=== PATIENT | male | born 1965 | race Caucasian/White ===

== ENCOUNTER 2018-09-11 07:16 | Observation (INO) ==
[2018-09-11] MEDS ORDERED: CeFAZolin Syr 2,000MG/20 ML 2,000 MG/20 ML SYRINGE IVPB ONE (07:41)
[2018-09-11] MEDS ORDERED: *HR* FentaNYL (PF) 100 MCG/2 ML VIAL ONE (07:44)
[2018-09-11] MEDS ORDERED: *HR* Midazolam HCl 2 MG/2 ML VIAL ONE (07:44)
[2018-09-11] MEDS ORDERED: Ringers Solution, Lactated 500 ML IVC SCH (07:45)
[2018-09-11] MEDS ORDERED: Ondansetron 4 MG/2 ML VIAL ONE (07:49)
[2018-09-11] MEDS ORDERED: Lidocaine -MPF 2% 2 ML VIAL ONE (07:49)
[2018-09-11] MEDS ORDERED: Dexamethasone 4 MG/ML VIAL ONE (07:49)
[2018-09-11] MEDS ORDERED: Propofol 500 MG/50 ML INFUS..BTL ONE (07:50)
--- NOTE | 2018-09-11 07:54 | History & Physical Report ---
Date of Encounter: 09/11/18 Time of Encounter: 07:53 24 Hour HP Update - Instructions Instructions: If the History and Physical is less than 30 days old and was completed prior to A.M. admission and or procedure and has NOT been updated on calendar day of procedure please complete this update prior to performing procedure. - Update Patient reports changes in Medical Condition: No Changes in examination, assessment, or condition: No Changes in Medication: No Preop tests/diagnostics Reviewed: Yes Surgery Remains Indicated: Yes Consent for Planned Operative Procedure(s) Verified: Yes - Pre-Operative Checklist Preoperative Checklist Indicated: No Prophylactic Antibiotic Ordered: Yes Is VTE Prophylaxis Indicated?: Yes
[2018-09-11] MEDS ORDERED: Ethanol\\Acetic Acid\\Na Ace\\Ben 1,000 ML IRRIG.SOLN IR ONE (08:01)
--- NOTE | 2018-09-11 08:07 | Anesthesia Evaluation PreOp ---
Date of Encounter: 09/11/18 Time of Encounter: 08:05 - Past History Planned Operation: Right Robotic Toatal Knee Arthroplasty Cardiac History: HTN, Hyperlipidemia Pulmonary History: Former smoker (quit 2001), Snore, Other (Hx B. PE) DATA INTEGRATION ANALYST History: Syncope, Other (Tremors) Other Medical History: Diabetes Type II, Other (Hypomagnesemia) Anesthesia History: No Prior Anesthetic Complications, Past Anesthesia (Left TKR 09/2015, knee scope, lipoma,Tonsillectomy, Appy, Cyst removed from Head) Alcohol Use: none Drug use: none Medications and Allergies Aspirin [Lo-Dose Aspirin EC] 81 mg PO DAILY 09/11/18 [History] Atorvastatin [Lipitor] 10 mg PO HS 09/11/18 [History] Carvedilol [Coreg] 6.25 mg PO BID 09/11/18 [History] GlipiZIDE [Glipizide Xl] 5 mg PO DAILY 09/11/18 [History] Lisinopril [Zestril] 20 mg PO DAILY 09/11/18 [History] Magnesium Oxide [Mag-Ox] 400 mg PO BID 09/11/18 [History] Metformin HCl [Metformin HCl ER] 500 mg PO BID 09/11/18 [History] Allergy/AdvReac Type Severity Reaction Status Date / Time No Known Allergies Allergy Verified 08/29/18 09:48 - Meds/Allergy Pre-op Review Medications Reviewed: Yes Allergies Reviewed: Yes Beta Blockers on Current Med List: Yes If Beta Blockers taken, Date/Time (Last Dose taken): 05:00 09/11/18 Anesthesia Results - Labs Laboratory Tests 08/29/18 08/29/18 08/29/18 10:00 10:00 10:00 WBC 7.5 Hgb 13.7 Hct 41.2 Plt Count 343 INR 1.0 Sodium 136 Potassium 4.6 Chloride 105 Carbon Dioxide 24 BUN 29 H Creatinine 1.36 H - Imaging EKG: report reviewed (SB) Additional studies: 07/15/18 Stress Test No Ischemia Very small fixed defect in inferior wall EF-69% Anesthesia Exam O2 Sat Height 1.68 m Height 1.68 m Weight 110.677 kg Weight 110.677 kg O2 Sat by Pulse Oximetry 96 Vital Signs Temp Pulse Resp BP Pulse Ox 98.1 F 89 18 130/87 96 09/11/18 07:34 09/11/18 07:34 09/11/18 07:34 09/11/18 07:34 09/11/18 07:34 Blood glucose: 150 NPO (# of Hours): > 8 HRS Pain Scale: 0 Pain Scale Used: Numeric (1 - 10) - HEENT Pupil (Motor): Pupils equal, EOMI Mallampati: IV Teeth: Normal Oral Opening: Greater than 3 - DATA INTEGRATION ANALYST LOC: Oriented DATA INTEGRATION ANALYST Motor: Normal RUE, Normal LUE, Normal RLE, Normal LLE, Normal Face DATA INTEGRATION ANALYST Sensory: Normal: RUE, LUE, RLE, LLE, Face - Cardiac Rhythm: Regular Murmur: None JVD: No Carotid Bruit: No - Pulmonary Breath Sounds: bilateral Clear Respiratory Effort: Symmetrical Anesthesia Assess/Plan ASA Score: 3 Level of consciousness: Cooperative Anesthetic Plan: General, Regional Nerve Block Regional Nerve Block Plan: Adductor canal, IPACK Reason for No Neuroaxial/Regional Block: Patient refusal Autologous Blood: Yes Monitoring Plan: Standard Monitors Recovery Plan: PACU
[2018-09-11] MEDS ORDERED: Bupivacaine/Clonidine Syringe 1 EACH SYRINGE ONE (08:24)
[2018-09-11] MEDS ORDERED: ROPIVACAINE HCL/PF 0.5% 30 ML VIAL ONE (08:24)
[2018-09-11] MEDS ORDERED: *HR* HYDROmorphone (PF) 1 MG/ML SYRINGE IVP PRN (08:36)
[2018-09-11] MEDS ORDERED: *HR* OxyCODONE Immed Rel 5 MG TABLET PO PRN (08:36)
[2018-09-11] MEDS ORDERED: *HR* Labetalol 20 MG/4 ML SYRINGE IVP PRN (08:36)
[2018-09-11] MEDS ORDERED: *HR* Propofol 200 MG/20 ML VIAL IVP ONE (08:41)
--- NOTE | 2018-09-11 08:44 | Discharge Summary ---
<Eda Omer L - Last Filed: 09/11/18 15:09> Orders not resulted at time of discharge: Pending orders 09/11/18 11:02 Surgical Pathology [PTH] Routine 09/11/18 13:18 US anesthesia pain block [US] Routine 09/12/18 04:00 Basic Metabolic Panel AM 0400 Hemoglobin and Hematocrit [HEME] AM 0400 09/13/18 04:00 Basic Metabolic Panel AM 0400 Hemoglobin and Hematocrit [HEME] AM 0400 Date of Encounter: 09/11/18 - Discharge Diagnosis (1) Status post total knee replacement, right Priority: Primary Status: Acute - Hospital Course Hospital course: Mr. Long is a 53 year old male - Time Spent with Patient Total time spent providing and/or coordinating discharge services: - Discharge Medications Home Medications: Atorvastatin [Lipitor] 10 mg PO HS 09/11/18 [History] Carvedilol [Coreg] 6.25 mg PO BID 09/11/18 [History] Docusate [Colace] 100 mg PO BID 10 Days #20 capsule 09/11/18 [Rx] GlipiZIDE [Glipizide Xl] 5 mg PO HS 09/11/18 [History] Lisinopril [Zestril] 20 mg PO DAILY 09/11/18 [History] Magnesium Oxide [Mag-Ox] 400 mg PO BID 09/11/18 [History] Metformin HCl [Metformin ER Gastric] 500 mg PO BID 09/11/18 [History] OxyCODONE Immed Rel [Roxicodone 5 MG] 5 mg PO Q6HR PRN 7 Days #28 tablet 09/11/18 [Rx] Allergies/Adverse Reactions: Allergy/AdvReac Type Severity Reaction Status Date / Time No Known Allergies Allergy Verified 08/29/18 09:48 Primary care physician: JIMENEZ Doss Consults: 09/11/18 13:18 Consult to Occupational Therapy [CONS] Routine Comment: Evaluate, develop and implement POC Reason for Consult: post knee surgery Does patient have active BEDREST order?: No Is patient medically & hemodynamically stable?: Yes Consult to Orthopedic Navigator [CONS] [CONS] Routine Consult to Physical Therapy [CONS] Routine Comment: Evaluate, develop and impliment POC Reason for Consult: post knee surgery Does patient have active BEDREST order?: No Is patient medically & hemodynamically stable?: Yes Consult to Manager Sterile Processing [CONS] Routine Reason for SW Consult: post op joint replacement RT Post Op Consult [CONS] Routine Labs on day of discharge: Labs from last 24 hours 09/11/18 09/11/18 12:06 07:31 Hgb 12.7 L Hct 38.3 POC Glucose 150 H - Impressions ITS Impressions Knee X-Ray 09/11/18 00:01 IMPRESSION: Status post right knee arthroplasty. No acute postoperative complication. D/ / 09/11/2018 13:54:30 Edil Ayala MD / ching Interpreting Provider: Edil Ayala MD - Patient Status Disposition: Home Health Service Condition: Fair - Discharge Instructions Instructions: Deep Venous Thrombosis (DC) Follow Up With: Estefany Wilks CNP [Primary Care Provider] - Additional Instructions: Discharge Instructions: Total Knee Replacement Please call [facility] ([phone]), your Primary Care Physician, or report to the Emergency Room if you have any of the following symptoms: Nausea, vomiting, fever greater that 101.5, swelling, chest pain, shortness of breath, increased pain/redness/drainage/odor for your incision site, numbness/tingling, or any other concerning symptoms. ACTIVITY:Weight-bearing as tolerated. You may progress off support (crutches or walker) as tolerated. Incentive Spirometer 10 times an hour. MEDICATIONS: Upon discharge resume your home medications. Take all the medications as prescribed. Take a stool softener if taking narcotic pain medications. Stool softeners are only effective if you drink enough fluids. Drink 6-8 glass of water or fluids a day, unless this is not allowed for another health problem. Despite using stool softeners, if you haven't had a bowel move ment in 3 days, please switch to a gentle laxative. Gentle laxatives are sold over the counter. You should have a bowel movement within 24 hours, if not call the office. You will be discharged from the hospital with a prescription for pain medication. You are encouraged to decrease the use of narcotic pain medication as tolerated. Should you require a refill, please call the office. [facility] prescribes narcotic pain medication for only 4-6 weeks after surgery. If you require pain medication beyond this time period, you may be referred to your Primary Care Physician or to the Pain Clinic for further evaluation. Plan ahead for refills on pain medication as many narcotics either need to be picked up at the office or mailed. It is best to call 48-72 hours in advance of needing a prescription refill so you don't run out of medication. To help control the post-operative pain, you may take NSAIDs (Aleve,Advil, Motrin, Ibuprofen, Naprosyn) or Tylenol as prescribed on the bottle in addition to the pain medication. ANTICOAGULATION (blood thinners): Continue your Aspirin, Lovenox or Coumadin as prescribed to help prevent a blood clot in the leg or in the lungs. As long as your incision remains dry and you tolerate the NSAIDs (Aleve, Advil, Motrin, ibuprofen, naprosyn), it is OK to use the NSAIDS while you are taking your anticoagulation medication. Should your incision start to drain, stop the NSAID and contact our office. Common symptoms of blood clot in the legs include: localized pain, swelling, calf tenderness, redness or discoloration of the skin. Blood clot in the lung symptoms include: shortness of breath, rapid pulse, sweating, and chest pain that worsens with deep breathing, coughing up blood, lightheadedness, feelings of anxiety. If you experience any of these symptoms notify your physician immediately, go to the emergency room, or if having trouble breathing, call 911. WOUND CARE: Leave the dressing on for 7 to 10days. You may change the dressing if it becomes saturated greater than 50%. Do not get the dressing wet at anytime. Wash your hands with antibacterial soap, rinse and dry prior to any wound care. If you have swapna the visiting nurse or rehab facility can remove the stapes 10-14 days after surgery and place steri-strips across the wound. Leave the steri-strips in place until they fall off on their won. You may let water from the shower run on top of the steri-strips. If you do not have a visiting nurse or rehab facility, you will need to return to the office at 10-14 days for the swapna to be removed. If you have itching or redness around the dressing call the office. FOLLOW-UP: Please follow up with your surgeon in the orthopedic clinic in 4 weeks from the day of surgery. If you have swapna that need to be removed, you will need to come back to the office in 10-14 days from the day of surgery. <Jessica Martínez - Last Filed: 09/17/18 07:24> Orders not resulted at time of discharge: Pending orders 09/11/18 00:01 XR knee RT 1-2V [XR] Routine H/H [Hemoglobin and Hematocrit] [HEME] Routine Date of Encounter: 09/16/18 Time of Encounter: 08:00 - Discharge Diagnosis (1) Status post total knee replacement, right Priority: Primary Status: Acute (2) Osteoarthritis of right knee Priority: Primary Status: Acute Qualifiers: Osteoarthritis type: primary Qualified Code(s): M17.11 - Unilateral primary osteoarthritis, right knee (3) DVT (deep venous thrombosis) Priority: Primary Status: Acute Qualifiers: DVT location: lower extremity Affected thrombotic vein of extremity: tibial Chronicity: acute Laterality: right Qualified Code(s): I82.441 - Acute embolism and thrombosis of right tibial vein (4) Hypertension Priority: Secondary Status: Acute Qualifiers: Hypertension type: unspecified Qualified Code(s): I10 - Essential (primary) hypertension (5) Diabetes mellitus, type 2 Priority: Secondary Status: Acute Qualifiers: Diabetes mellitus halfway insulin use: without halfway use Diabetes mellitus complication status: with unspecified complications Qualified Code (s): E11.8 - Type 2 diabetes mellitus with unspecified complications (6) Obesity (BMI 30-39.9) Priority: Secondary Status: Acute (7) Dyslipidemia Priority: Secondary Status: Acute (8) History of pulmonary embolus (PE) Priority: Secondary Status: Acute - Hospital Course Hospital course: Mr. Long is a 53 year old male status post right TKR robotic 09/11/18 with history of osteoarthritis, HTN, DM2, previous PE after left TKR, dyslypidemia and obesity. He had increasing pain and swelling on POD#2 and doppler ordered, found to be positive for DVT to the right lower extremity with thrombus noted in mid post tibial vein. Lovenox was switched to weight based during rest of admission and he was discharged home on xarelto. He will have follow up with PCP for further evaluation. He participated in therapy. He was evaluated by Dr. Anderson on day of discharge and noted to be stable for discharge at that time. - Time Spent with Patient Total time spent providing and/or coordinating discharge services: Date of admission: 09/11/18 Primary care physician: JIMENEZ Doss Discharging clinician: Phillip Anderson Anticipated date of discharge: 09/16/18 Procedures and tests throughout hospitalization: Doppler - POSITIVE for DVT right lower extremity. Thrombus noted in mid post tibial vein. - Patient Status Functional capacity at discharge: uses cane/walker Overall status at discharge: patient is back to baseline - Diet and Activity Activity: as per physical therapy Diet: advance to your usual diet
--- NOTE | 2018-09-11 08:47 | Physician Discharge Referral ---
Home Health/Hosp Referral Info Transfer to: Home Health Attending Provider: Justin - Diagnosis (1) Osteoarthritis of right knee Priority: Primary Status: Acute (2) Hypertension Priority: Secondary Status: Acute (3) Diabetes mellitus, type 2 Priority: Secondary Status: Acute (4) Obesity (BMI 30-39.9) Priority: Secondary Status: Acute (5) Dyslipidemia Priority: Secondary Status: Acute (6) History of pulmonary embolus (PE) Priority: Secondary Status: Acute - Respiratory Orders None Smoking Cessation: Smoking cessation has been advised. For more information, call the [place] Tobacco Quit Line at 4-604-CWAH-NOW. - Diet/Nutrition Diet/Nutrition Orders: Regular - Activity Activity Orders: Up ad william, Ambulate, Chair, Walker - Services Needed Following services are medically necessary services: Nursing, Home Health Aide, Physical Therapy, Occupational Therapy Home Care Orders: Opsite dressing, leave intact until first post-operative visit. If dressing becomes >50% saturated, contact office, remove dressing and place appropriate dressing in its place. Do not allow for dressing to get wet. Zipline/Chataignier in place, plan to remove at post-operative day #14-16. Total Joint Precautions x 6 weeks Apply cold therapy wrap 3-6x/day for 20 minutes at a time. Encourage ambulation throughout the day Use Incentive spirometer 10x/hour. Elevate affected extremity above heart as tolerated. Brace: Wear knee immobilizer at night x 2 weeks. - Transfer Medications Home Medications: Aspirin [Lo-Dose Aspirin EC] 81 mg PO DAILY 09/11/18 [History] Atorvastatin [Lipitor] 10 mg PO HS 09/11/18 [History] Carvedilol [Coreg] 6.25 mg PO BID 09/11/18 [History] GlipiZIDE [Glipizide Xl] 5 mg PO DAILY 09/11/18 [History] Lisinopril [Zestril] 20 mg PO DAILY 09/11/18 [History] Magnesium Oxide [Mag-Ox] 400 mg PO BID 09/11/18 [History] Metformin HCl [Metformin HCl ER] 500 mg PO BID 09/11/18 [History] Allergies/Adverse Reactions: Allergy/AdvReac Type Severity Reaction Status Date / Time No Known Allergies Allergy Verified 08/29/18 09:48 Certification: Further, I certify that my clinical findings support that this patient is homebound (i.e. absences from home require considerable and taxing effort and are for medical reasons or quaker services or infrequently or short duration when for other reasons) because: Homebound Reason: Post-surgery restriction and or conditions limit ability to leave home Attestation: My signature below is to certify that this patient is under my care and that I, or nurse practitioner, or a physician mail handler assistant working with me, has a [id number] encounter with this patient.
--- NOTE | 2018-09-11 09:22 | Anesthesia Procedures ---
Date of Encounter: 09/11/18 Time of Encounter: 09:15 Procedures: Anesthesia - Nerve Block Procedure Date: 09/11/18 Time: 09:15 Allergies/Adv Reactions: NKDA Vital Signs/O2 Sat/Glucose, Most Recent Temp Pulse Resp BP Pulse Ox 98.1 F 67 18 124/82 98 09/11/18 07:34 09/11/18 09:19 09/11/18 07:34 09/11/18 09:19 09/11/18 09:19 Blood Glucose* 150 Pre-op Diagnosis: OA R Knee Surgical Procedure: R Knee Robotic Total Knee Checklist: Correct Patient Identifier, Correct procedure, History checked Correct side: Right Blood Thinner: No Monitor Applied: EKG, BP, Pulse Oximetry Supplemental Oxygen via Nasal Cannula (L/min): 2 Sedation: Versed (mg): 2 Sedation: Fentanyl (mcg): 100 Indication: Post Op Analgesia Pre-op Neuro Deficits: No Block Type: Other (Adductor Canal, IPACK, DEANA) Catheter placed: No Sterile Technique: Yes Ultrasound used: Yes Anatomy identified: Yes Visual spread of Local: Yes Neuro Stimulation: No Blood on Needle Aspiration: No Smooth Injection of Local: Yes Pain with Injection of Local: No Prep: Chlorhexadine Needle: 21 x 100 mm Stimuplex Local: 0.25% Bupivicaine w/Clonidine 20 mcg/cc (20mL IPACK, 8mL DEANA), Ropivacaine (30mL 0.5% Ropivacaine with 8mg Decadron for Adductor Canal Block.) Number of Attempts: 1 Complications: None/effective block Vitals: Vital Signs/O2 Sat/Glucose, Most Recent Temp Pulse Resp BP Pulse Ox 98.1 F 67 18 124/82 98 09/11/18 07:34 09/11/18 09:19 09/11/18 07:34 09/11/18 09:19 09/11/18 09:19 Blood Glucose* 150
[2018-09-11] MEDS ORDERED: *HR* HYDROMORPHONE 2 MG/ML VIAL ONE ×2 (09:52→11:36)
--- NOTE | 2018-09-11 10:54 | Orthopedic Operative Note ---
Date of procedure: 09/11/18 Pre-op diagnosis: Right knee arthritis Post-op diagnosis: same Procedure: Procedure: Right robotic-assisted Total knee replacement Estimated blood loss: 200 cc Hardware: Metal and polyethylene replacement. [place] Femur: 3 Tibia: 4 TS insert: 9 Patella: 36 Exam Under anesthesia: 8 degrees flexion contracture 14 degree varus deformity as calculated by the robot full flexion and no instability Procedural Notes: Grade 4 arthritic changes all 3 compartments. Operative procedure: The patient was brought to the operating room and placed on the operating room table. After general anesthesia was administered the operative knee was exami paula. Findings were noted in the exam under anesthesia. The operative extremity was prepped and draped in sterile surgical fashion. The patient received IV antibiotics prior to skin incision. A standard midline incision was made centered over the patella. The incision was made through the skin and subcutaneous tissue. A medial parapatellar tendon approach was performed. Care was taken to preserve tissue along the medial aspect of the patella. And to protect the patella tendon. The deep MCL was released off the medial tibia. The infra patella fat pad was excised. The patella was everted and cut was made at the level of the insertion of the quadriceps and patella tendon. The patella was sized the guide was seated and the lug holes are drilled. Knee was brought into flexion. Patient noted to have grade 4 arthritic changes all 3 compartments. Steinmann pins were placed in the tibia and the femur for the tibial and femoral arrays respectively. Checkpoints were also placed in the tibia and the femur for calculation purposes. The knee including the femur and the tibial registered. Osteophytes, ACL and PCL were excised at this point. Extension and flexion were assessed with a valgus stress components were adjusted on the computer to balance the knee. Femoral cuts were made first with robotic assistance, these included the anterior cut posterior cuts chamfer cuts. Tibial cut was then performed with robotic assistance as well. Bone fragments were removed, as well as the medial and lateral meniscus. The size 3 femoral guide was seated box cut was made lug holes are drilled. The size 4 tibial tray was seated and prepared with the fin cutter. Trial reduction with the 9 TS Shona revealed extension of 0 degree and 7 degrees varus full flexion. No varus valgus instability. Trial reduction revealed excellent patella tracking. All trial components were removed all bony surfaces were irrigated. The Tibia was seated followed by the femur, The selected Shona size was seated and secured patella. Patient had similar findings for motion and stability. The knee was closed by the PA. The knee was then irrigated out with 2 L of pulse irrigation. The extensor mechanism was closed with #2 FiberWire suture and #2 PDS suture. The subcutaneous tissue was then irrigated and closed deep with #1 PDS suture superficially with 0 PDS suture and skin was closed with zip tie The patient was then placed in a sterile dressing and a postoperative brace extubated and transferred to recovery room in stable condition. Anesthesia: GETA Surgeon: Phillip Anderson Was there an certified medical assistant present: Yes Air Table Operator: Eda Omer Estimated blood loss (cc): 200 Condition: stable Disposition: PACU
--- NOTE | 2018-09-11 12:07 | Anesthesia Evaluation Post Op ---
Date of Encounter: 09/11/18 Time of Encounter: 12:06 - Vital Signs Vital Signs: Vital Signs/O2 Sat/Glucose, Most Recent Temp Pulse Resp BP Pulse Ox 98.8 F 77 12 118/83 96 09/11/18 11:30 09/11/18 11:50 09/11/18 11:50 09/11/18 11:50 09/11/18 11:50 Blood Glucose* 141 - Lungs Lungs: Clear Ascult./Percussion - Airway Airway: Non-obstructed - Cardiovascular Regular Rate - Mental Status Mental Status: Alert & Oriented, Answers Appropriately - Pain Pain Scale: 9 (appears no acute distress) Pain Scale used: Numeric (1 - 10) - Nausea Vomiting Nausea Vomiting: Not Present - Hydration Hydration: Ice chips, Has not voided - Discharge PostOp Status: Transfer Patient to floor
[2018-09-11 12:19] LABS: Hematocrit 38.3 % (37.5-50.1); Hemoglobin 12.7 g/dL (12.9-16.9)
[2018-09-11] MEDS ORDERED: MOM Conc 10 ML UD.LIQ PO PRN (13:18)
[2018-09-11] MEDS ORDERED: Ondansetron 4 MG/2 ML VIAL IVP PRN (13:18)
[2018-09-11] MEDS ORDERED: Dextrose Gel 15 GM/37.5 ML TUBE PO PRN ×2 (13:18)
[2018-09-11] MEDS ORDERED: D5% in Water 1,000 ML IVC PRN (13:18)
[2018-09-11] MEDS ORDERED: *HR* Dextrose 50 % in Water (Syg) 50 ML SYRINGE IVP PRN (13:18)
[2018-09-11] MEDS ORDERED: Temazepam 15 MG CAPSULE PO PRN (13:18)
[2018-09-11] MEDS ORDERED: Naloxone 0.4 MG/ML INJ IVP PRN (13:18)
[2018-09-11] MEDS ORDERED: Sennosides 8.6 MG TABLET PO PRN (13:18)
[2018-09-11] MEDS ORDERED: Ringers Solution, Lactated 1,000 ML ONE (13:21)
[2018-09-11] MEDS: traMADol 50 MG TABLET PO PRN (15:12)
[2018-09-11] MEDS: Insulin LISPRO 300 UNITS/3 ML VIAL SQ SCH ×3 (15:54→21:21)
[2018-09-11] MEDS: Ringers Solution, Lactated 1,000 ML IVC SCH (16:02)
[2018-09-11] MEDS: *HR* Metformin 500 MG TABLET PO SCH (16:03)
--- NOTE | 2018-09-11 17:11 | Physician Discharge Referral ---
Home Health/Hosp Referral Info Transfer to: Home Health Attending Provider: Justin - Diagnosis (1) Status post total knee replacement, right Priority: Primary Status: Acute (2) Osteoarthritis of right knee Priority: Primary Status: Acute (3) Hypertension Priority: Secondary Status: Acute (4) Diabetes mellitus, type 2 Priority: Secondary Status: Acute (5) Obesity (BMI 30-39.9) Priority: Secondary Status: Acute (6) Dyslipidemia Priority: Secondary Status: Acute (7) History of pulmonary embolus (PE) Priority: Secondary Status: Acute (8) DVT (deep venous thrombosis) Priority: Primary Status: Acute - Respiratory Orders None Smoking Cessation: Smoking cessation has been advised. For more information, call the [employer] Tobacco Quit Line at 3-471-WYMP-NOW. - Diet/Nutrition Diet/Nutrition Orders: Regular - Activity Activity Orders: Up ad william, Ambulate, Chair, Walker - Services Needed Following services are medically necessary services: Nursing, Home Health Aide, Physical Therapy, Occupational Therapy Home Care Orders: Opsite dressing, leave intact until first post-operative visit. If dressing becomes >50% saturated, contact office, remove dressing and place appropriate dressing in its place. Do not allow for dressing to get wet. Zipline/Rosi in place, plan to remove at post-operative day #14-16. Total Joint Precautions x 6 weeks Apply cold therapy wrap 3-6x/day for 20 minutes at a time. Encourage ambulation throughout the day Use Incentive spirometer 10x/hour. Elevate affected extremity above heart as tolerated. Brace: Wear knee immobilizer at night x 2 weeks. - Transfer Medications Home Medications: Aspirin Enteric Coated [Aspirin EC] 325 mg PO BID #20 tablet. 09/11/18 [Rx] Atorvastatin [Lipitor] 10 mg PO HS 09/11/18 [History] Carvedilol [Coreg] 6.25 mg PO BID 09/11/18 [History] Docusate [Colace] 100 mg PO BID 10 Days #20 capsule 09/11/18 [Rx] GlipiZIDE [Glipizide Xl] 5 mg PO HS 09/11/18 [History] Lisinopril [Zestril] 20 mg PO DAILY 09/11/18 [History] Magnesium Oxide [Mag-Ox] 400 mg PO BID 09/11/18 [History] Metformin HCl [Metformin HCl ER] 500 mg PO BID 09/11/18 [History] OxyCODONE Immed Rel [Roxicodone 5 MG] 5 mg PO Q6HR PRN 7 Days #28 tablet 09/11/18 [Rx] Allergies/Adverse Reactions: Allergy/AdvReac Type Severity Reaction Status Date / Time No Known Allergies Allergy Verified 08/29/18 09:48 Certification: Further, I certify that my clinical findings support that this patient is homebound (i.e. absences from home require considerable and taxing effort and are for medical reasons or baptism services or infrequently or short duration when for other reasons) because: Homebound Reason: Post-surgery restriction and or conditions limit ability to leave home Attestation: My signature below is to certify that this patient is under my care and that I, or nurse practitioner, or a physician assistant public defender working with me, has a [id number] encounter with this patient.
[2018-09-11] MEDS: *HR* OxyCODONE Immed Rel 5 MG TABLET PO PRN (19:49)
[2018-09-11] MEDS: *HR* Enoxaparin 30 MG/0.3 ML SYRINGE SQ SCH (19:49)
[2018-09-11] MEDS: Magnesium Oxide 400 MG TABLET PO SCH (21:18)
[2018-09-12] MEDS: *HR* GlipiZIDE XL (24 HR) 2.5 MG TABLET PO SCH ×2 (00:32→20:34)
[2018-09-12] MEDS: *HR* OxyCODONE Immed Rel 5 MG TABLET PO PRN ×4 (04:43→20:41)
[2018-09-12] MEDS: *HR* Enoxaparin 30 MG/0.3 ML SYRINGE SQ SCH ×2 (06:03→17:55)
[2018-09-12 07:37] LABS: Hematocrit 33.4 % (37.5-50.1)
[2018-09-12 07:38] LABS: Hemoglobin 10.8 g/dL (12.9-16.9)
[2018-09-12 08:00] LABS: BUN/Creatinine Ratio 19 (6-26); Blood Urea Nitrogen 27 mg/dL (6-20); Calcium 8.8 mg/dL (8.6-10.3); Carbon Dioxide 25 mEq/L (23-29); Chloride 105 mEq/L (98-107); Glucose 152 mg/dL (70-105); Osmolality,Calculated 292 (280-300); Potassium 4.4 mEq/L (3.5-5.1); Sodium 137 mEq/L (136-145); eGFR For Non-African Americans 53 (> 60)
--- NOTE | 2018-09-12 08:01 | Orthopedics Progress Note ---
Date of Encounter: 09/12/18 Time of Encounter: 08:01 Subjective Interval history: Patient was seen this morning doing well without complaints. Afebrile vital signs stable. Operative extremity: Neurovascularly intact Dressing clean dry and intact Calves nontender Assessment and plan: Continue with postoperative care Hematocrit 33 Objective Vital signs: Vital Signs Temp Pulse Resp BP Pulse Ox 09/12/18 04:39 98.1 F 74 16 164/98 99 09/11/18 23:03 98.5 F 69 18 121/76 96 09/11/18 19:41 98.2 F 66 18 175/92 98 09/11/18 16:44 97.7 F 69 16 116/79 98 09/11/18 16:12 97.8 F 67 16 129/84 97 09/11/18 15:06 98.1 F 72 16 122/80 97 09/11/18 14:04 98.0 F 65 16 128/86 97 09/11/18 13:27 97.9 F 63 16 124/87 97 09/11/18 12:45 97.9 F 68 16 129/85 97 09/11/18 12:15 98.2 F 76 14 131/83 96 09/11/18 12:00 98.2 F 68 12 129/81 97 09/11/18 11:50 77 12 118/83 96 09/11/18 11:40 77 14 126/88 96 09/11/18 11:30 98.8 F 85 16 128/94 93 09/11/18 09:19 67 124/82 98 09/11/18 09:06 71 140/100 99 Intake and Output 09/11/18 09/12/18 09/12/18 23:59 07:59 15:59 Intake Total 340 / 340 Output Total 250 / 250 Balance 340 / 340 -250 / -250 Intake: IV Fluids 100 / 100 Ancef 2,000 MG In 0.9 % Sodium 100 / 100 Chloride 100 ML @ 200 mls/hr IVPB Q8H [facility] Rx#:[id number] Oral 240 / 240 Output: Urine 250 / 250 Other: Meal Dinner Percent of Meal Consumed 70% Weight 114.3 kg Blood Glucose* 272 - Labs CBC & BMP: 09/12/18 07:20 09/12/18 07:20 Labs: Abnormal lab results Hgb 10.8 g/dL (12.9-16.9) L D 09/12/18 07:20 Hct 33.4 % (37.5-50.1) L 09/12/18 07:20 BUN 27 mg/dL (6-20) H 09/12/18 07:20 Creatinine 1.40 mg/dL (0.70-1.30) H 09/12/18 07:20 Est GFR (Non-Af Amer) 53 (> 60) L 09/12/18 07:20 Glucose 152 mg/dL (70-105) H 09/12/18 07:20 POC Glucose 272 mg/dL (70-99) H 09/11/18 20:30 Consult Discharge Plan - Plan Referrals: Estefany Wilks, SHIPWRIGHT HELPER [Primary Care Provider] - Prescriptions: Aspirin Enteric Coated [Aspirin EC] 325 mg PO BID #20 tablet. Docusate [Colace] 100 mg PO BID 10 Days #20 capsule OxyCODONE Immed Rel [Roxicodone 5 MG] 5 mg PO Q6HR PRN 7 Days #28 tablet PRN Reason: Severe Pain
[2018-09-12] MEDS: Insulin LISPRO 300 UNITS/3 ML VIAL SQ SCH ×4 (08:14→20:46)
[2018-09-12] MEDS: traMADol 50 MG TABLET PO PRN ×2 (08:15→17:55)
[2018-09-12] MEDS: Lisinopril 20 MG TABLET PO SCH (08:17)
[2018-09-12] MEDS: Aspirin Enteric Coated 81 MG Tablet PO SCH (08:17)
[2018-09-12] MEDS: *HR* Metformin 500 MG TABLET PO SCH ×2 (08:17→17:55)
[2018-09-12] MEDS: Magnesium Oxide 400 MG TABLET PO SCH ×2 (08:17→20:41)
[2018-09-12] MEDS: Ringers Solution, Lactated 1,000 ML IVC SCH ×2 (19:06→20:45)
--- NOTE | 2018-09-12 20:15 | Event Note ---
Date of Encounter: 09/12/18 Time of Encounter: 13:20 PCR - POD#1 s/p Right robotic-assisted Total knee replacement 09/11/18 Patient seen at bedside, without complaints. A&O x 3 Afebrile, vital signs stable. Dressings had roughly 30% bloody drainage at distal end of incision not past border which per patient was drawn last night. Will continue to monitor. No calf tenderness to palpation, good dorsiflexion of foot, sensation intact distally. Labs reviewed. H/H - 10.8/33.4 stable, asymptomatic Renal labs similar to preop labs - will continue to monitor Pain control: inadequate - will add ofirmev and lidoderm patch Participating in PT. All questions and concerns addressed. Educated on use of incentive spirometer. Encouraged ambulation and proper hydration. Patient educated on post-operative restrictions and post-operative care. With patient's history of PE after previous TKR will likely plan to DC patient home with carolyn. Will discuss options with Dr. Anderson. Assessment and plan: Continue with postoperative care Discharge plan: Home with home health, discharge possibly tomorrow.
[2018-09-12] MEDS: Acetaminophen IV 1,000 MG/100 ML INFUS..BTL IVPB PRN (20:41)
[2018-09-13] MEDS: *HR* OxyCODONE/APAP 5/325 TABLET PO PRN ×2 (00:55→07:29)
[2018-09-13] MEDS: Acetaminophen IV 1,000 MG/100 ML INFUS..BTL IVPB PRN ×2 (04:53→11:15)
[2018-09-13] MEDS: *HR* Enoxaparin 30 MG/0.3 ML SYRINGE SQ SCH ×2 (04:54→17:04)
[2018-09-13] MEDS: Ringers Solution, Lactated 1,000 ML IVC SCH (05:11)
[2018-09-13] MEDS: Insulin LISPRO 300 UNITS/3 ML VIAL SQ SCH ×4 (07:20→20:35)
[2018-09-13] MEDS: Magnesium Oxide 400 MG TABLET PO SCH ×2 (07:29→20:38)
[2018-09-13] MEDS: *HR* Metformin 500 MG TABLET PO SCH ×2 (07:29→17:04)
[2018-09-13] MEDS: Aspirin Enteric Coated 81 MG Tablet PO SCH (07:29)
[2018-09-13] MEDS: Lisinopril 20 MG TABLET PO SCH (07:29)
--- NOTE | 2018-09-13 08:00 | Orthopedics Progress Note ---
Date of Encounter: 09/13/18 Time of Encounter: 07:59 Subjective Interval history: Patient was seen this morning doing well without complaints. Afebrile vital signs stable. Operative extremity: Neurovascularly intact Dressing clean dry and intact Calves nontender Assessment and plan: Continue with postoperative care dc today Objective Vital signs: Vital Signs Temp Pulse Resp BP Pulse Ox 09/13/18 07:01 97.9 F 68 14 119/74 95 09/13/18 03:58 98.2 F 74 16 134/80 96 09/12/18 23:02 98.3 F 73 15 111/71 94 09/12/18 20:57 95 09/12/18 18:50 98.2 F 75 15 147/81 95 09/12/18 16:04 98.4 F 83 14 120/73 95 09/12/18 10:52 97.6 F 69 16 123/78 100 09/12/18 08:14 97.4 F L 69 14 147/94 99 Intake and Output 09/12/18 09/12/18 09/13/18 15:59 23:59 07:59 Intake Total 1120 / 1120 100 / 100 Output Total 300 / 300 200 / 200 200 / 200 Balance 820 / 820 -200 / -200 -100 / -100 Intake: IV Fluids 1000 / 1000 100 / 100 Lactated Ringers 1,000 ML @ 75 1000 / 1000 mls/hr IVC .[id number] [facility] Rx#: [id number] Ofirmev 1,000 mg/100 ml 1,000 100 / 100 mg In 100 ml @ 400 mls/hr IVPB Q6HR PRN Rx#:[id number] Oral 120 / 120 Output: Urine 300 / 300 200 / 200 200 / 200 Other: Meal Breakfast Percent of Meal Consumed 20% Weight 115.2 kg Blood Glucose* 156 169 132 Patient Weight 09/13/18 23:59 Weight 115.2 kg - Labs CBC & BMP: 09/12/18 07:20 09/12/18 07:20 Labs: Abnormal lab results Hgb 10.8 g/dL (12.9-16.9) L D 09/12/18 07:20 Hct 33.4 % (37.5-50.1) L 09/12/18 07:20 BUN 27 mg/dL (6-20) H 09/12/18 07:20 Creatinine 1.40 mg/dL (0.70-1.30) H 09/12/18 07:20 Est GFR (Non-Af Amer) 53 (> 60) L 09/12/18 07:20 Glucose 152 mg/dL (70-105) H 09/12/18 07:20 POC Glucose 156 mg/dL (70-99) H 09/12/18 10:50 Consult Discharge Plan - Plan Referrals: Estefany Wilks, CENTRAL OFFICE SUPERVISOR [Primary Care Provider] - Prescriptions: Aspirin Enteric Coated [Aspirin EC] 325 mg PO BID #20 tablet. Docusate [Colace] 100 mg PO BID 10 Days #20 capsule OxyCODONE Immed Rel [Roxicodone 5 MG] 5 mg PO Q6HR PRN 7 Days #28 tablet PRN Reason: Severe Pain
[2018-09-13 08:13] LABS: Hematocrit 30.6 % (37.5-50.1); Hemoglobin 10.1 g/dL (12.9-16.9)
[2018-09-13 08:33] LABS: BUN/Creatinine Ratio 20 (6-26); Blood Urea Nitrogen 24 mg/dL (6-20); Calcium 8.8 mg/dL (8.6-10.3); Carbon Dioxide 26 mEq/L (23-29); Chloride 104 mEq/L (98-107); Glucose 134 mg/dL (70-105); Osmolality,Calculated 288 (280-300); Potassium 4.3 mEq/L (3.5-5.1); Sodium 136 mEq/L (136-145); eGFR For Non-African Americans > 60 (> 60)
[2018-09-13] MEDS: traMADol 50 MG TABLET PO PRN (08:59)
--- NOTE | 2018-09-13 14:34 | Event Note ---
Date of Encounter: 09/13/18 Time of Encounter: 12:10 PCR - POD#2 s/p Right robotic-assisted Total knee replacement 09/11/18 Patient seen at bedside. A&O x 3 He states increased pain and swelling to right knee, and doesnt feel that he can leave today. Afebrile, vital signs stable. No further bloody drainage on dressing. Will have fresh dressing changed before DC. He has mild calf tenderness to palpation but more tight to quad muscle and pain to knee. Due to his h/o PE after previous surgery will order doppler. Labs reviewed. H/H - 10.10/02.6 stable, asymptomatic Renal labs similar to preop labs - will continue to monitor Pain control: improved some with lidoderm patch but concern for DVT to rule out first before adding anything else Participating in PT. All questions and concerns addressed. Educated on use of incentive spirometer. Encouraged ambulation and proper hydration. Patient educated on post-operative restrictions and post-operative care. With patient's history of PE after previous TKR will likely plan to DC patient home with [employer] starter pack. Assessment and plan: Continue with postoperative care Discharge plan: Home with home health, discharge possibly tomorrow.
[2018-09-13] MEDS: *HR* OxyCODONE Immed Rel 5 MG TABLET PO PRN ×2 (17:04→20:38)
[2018-09-13] MEDS: *HR* GlipiZIDE XL (24 HR) 2.5 MG TABLET PO SCH (20:38)
[2018-09-14] MEDS: *HR* OxyCODONE Immed Rel 5 MG TABLET PO PRN ×2 (04:27→10:02)
[2018-09-14] MEDS: Acetaminophen IV 1,000 MG/100 ML INFUS..BTL IVPB PRN (06:22)
[2018-09-14] MEDS: *HR* Enoxaparin 30 MG/0.3 ML SYRINGE SQ SCH ×2 (06:32→16:56)
[2018-09-14] MEDS: Insulin LISPRO 300 UNITS/3 ML VIAL SQ SCH ×4 (07:51→20:42)
[2018-09-14] MEDS: Lisinopril 20 MG TABLET PO SCH (07:59)
[2018-09-14] MEDS: Magnesium Oxide 400 MG TABLET PO SCH ×2 (07:59→20:42)
[2018-09-14] MEDS: Aspirin Enteric Coated 81 MG Tablet PO SCH (07:59)
[2018-09-14] MEDS: *HR* Metformin 500 MG TABLET PO SCH ×2 (07:59→16:56)
--- NOTE | 2018-09-14 10:12 | Orthopedics Progress Note ---
Date of Encounter: 09/14/18 Time of Encounter: 10:11 Subjective Interval history: Patient was seen this morning, knee pain as expected. Started on xarelto for DVT. AFVSS. Operative extremity: Neurovascularly intact Dressing clean dry and intact Calves nontender Assessment and plan: Continue with postoperative care Up with PT Continue Xarelto as scheduled D/c tomorrow vs sunday Objective Vital signs: Vital Signs Temp Pulse Resp BP Pulse Ox 09/14/18 07:14 98.8 F 62 16 128/81 97 09/14/18 03:49 98.8 F 77 16 131/82 97 09/13/18 22:51 99.0 F 66 16 134/81 96 09/13/18 19:43 98.3 F 66 16 129/81 96 09/13/18 12:20 98.0 F 89 16 134/87 98 Intake and Output 09/13/18 09/14/18 09/14/18 23:59 07:59 15:59 Intake Total 50 / 50 100 / 100 120 / 120 Output Total 300 / 300 350 / 350 Balance -250 / -250 -250 / -250 120 / 120 Intake: IV Fluids 100 / 100 Ofirmev 1,000 mg/100 ml 1,000 100 / 100 mg In 100 ml @ 400 mls/hr IVPB Q6HR PRN Rx#:[id number] Oral 50 / 50 120 / 120 Output: Urine 300 / 300 350 / 350 Other: Meal Breakfast Percent of Meal Consumed 70% Weight 115.2 kg Blood Glucose* 129 115 Patient Weight 09/14/18 23:59 Weight 115.2 kg - Labs CBC & BMP: 09/13/18 08:02 09/13/18 08:02 Labs: Abnormal lab results Hgb 10.1 g/dL (12.9-16.9) L 09/13/18 08:02 Hct 30.6 % (37.5-50.1) L 09/13/18 08:02 BUN 24 mg/dL (6-20) H 09/13/18 08:02 Glucose 134 mg/dL (70-105) H 09/13/18 08:02 POC Glucose 132 mg/dL (70-99) H 09/13/18 06:56 Consult Discharge Plan - Plan Referrals: Estefany Wilks, SPAGHE[employer]I PRESS HELPER [Primary Care Provider] -
[2018-09-14] MEDS: *HR* OxyCODONE/APAP 5/325 TABLET PO PRN (15:16)
[2018-09-14] MEDS: *HR* GlipiZIDE XL (24 HR) 2.5 MG TABLET PO SCH (20:42)
[2018-09-15] MEDS: *HR* Enoxaparin 30 MG/0.3 ML SYRINGE SQ SCH ×2 (05:53→18:07)
[2018-09-15] MEDS: *HR* OxyCODONE/APAP 5/325 TABLET PO PRN ×2 (05:54→16:01)
[2018-09-15] MEDS: Insulin LISPRO 300 UNITS/3 ML VIAL SQ SCH ×4 (09:11→22:11)
[2018-09-15] MEDS: Magnesium Oxide 400 MG TABLET PO SCH ×2 (09:16→20:26)
[2018-09-15] MEDS: *HR* Metformin 500 MG TABLET PO SCH ×2 (09:16→18:07)
[2018-09-15] MEDS: Lisinopril 20 MG TABLET PO SCH (09:16)
[2018-09-15] MEDS: Aspirin Enteric Coated 81 MG Tablet PO SCH (09:16)
--- NOTE | 2018-09-15 11:44 | Orthopedics Progress Note ---
Date of Encounter: 09/15/18 Time of Encounter: 11:44 Subjective Interval history: Patient was seen this morning, knee pain present as expected. AFVSS. Operative extremity: Neurovascularly intact Dressing clean dry and intact Calves nontender Assessment and plan: Continue with postoperative care Up with PT Continue Xarelto as scheduled D/c likely sunday, possible rehab Objective Vital signs: Vital Signs Temp Pulse Resp BP Pulse Ox 09/15/18 08:06 98.6 F 70 16 123/77 94 09/15/18 05:08 97.7 F 82 17 125/76 95 09/14/18 23:14 98.7 F 65 17 122/81 98 09/14/18 19:42 98.4 F 67 17 117/73 96 09/14/18 17:02 98.2 F 74 16 116/71 94 Intake and Output 09/14/18 09/15/18 09/15/18 23:59 07:59 15:59 Intake Total 120 / 120 Output Total 1025 / 1025 500 / 500 Balance -1025 / -1025 -500 / -500 120 / 120 Intake: Oral 120 / 120 Output: Urine 1025 / 1025 500 / 500 Other: Meal Breakfast Percent of Meal Consumed 100% Blood Glucose* 122 132 - Labs CBC & BMP: 09/13/18 08:02 09/13/18 08:02 Labs: Abnormal lab results Hgb 10.1 g/dL (12.9-16.9) L 09/13/18 08:02 Hct 30.6 % (37.5-50.1) L 09/13/18 08:02 BUN 24 mg/dL (6-20) H 09/13/18 08:02 Glucose 134 mg/dL (70-105) H 09/13/18 08:02 POC Glucose 132 mg/dL (70-99) H 09/15/18 06:56 Consult Discharge Plan - Plan Referrals: Estefany Wilks, ELEVATED GUARD [Primary Care Provider] -
[2018-09-15] MEDS: Ringers Solution, Lactated 1,000 ML IVC SCH (20:09)
[2018-09-15] MEDS: traMADol 50 MG TABLET PO PRN (20:40)
[2018-09-15] MEDS: *HR* GlipiZIDE XL (24 HR) 2.5 MG TABLET PO SCH (22:35)
[2018-09-15] MEDS: *HR* OxyCODONE Immed Rel 5 MG TABLET PO PRN (22:43)
[2018-09-16] MEDS: *HR* OxyCODONE Immed Rel 5 MG TABLET PO PRN ×2 (03:27→11:31)
[2018-09-16] MEDS: Ringers Solution, Lactated 1,000 ML IVC SCH (05:16)
[2018-09-16] MEDS: *HR* Enoxaparin 30 MG/0.3 ML SYRINGE SQ SCH (05:42)
--- NOTE | 2018-09-16 08:00 | Orthopedics Progress Note ---
Date of Encounter: 09/16/18 Time of Encounter: 07:59 Subjective Interval history: Patient was seen this morning doing well without complaints. Afebrile vital signs stable. Operative extremity: Neurovascularly intact Dressing clean dry and intact Calves nontender Assessment and plan: Continue with postoperative care Patient being treated for his deep vein thrombosis postoperative, patient feels like he safe to go home now. Plan is dc today Objective Vital signs: Vital Signs Temp Pulse Resp BP Pulse Ox 09/16/18 06:56 97.8 F 69 15 120/76 96 09/16/18 03:19 98.2 F 60 16 119/73 96 09/15/18 19:38 97.9 F 75 18 121/74 97 09/15/18 16:28 98.7 F 91 17 129/76 98 09/15/18 12:02 98.6 F 98 15 139/99 98 09/15/18 08:06 98.6 F 70 16 123/77 94 Intake and Output 09/15/18 09/15/18 09/16/18 15:59 23:59 07:59 Intake Total 120 / 120 640 / 640 800 / 800 Output Total 200 / 200 325 / 325 150 / 150 Balance -80 / -80 315 / 315 650 / 650 Intake: IV Fluids 100 / 100 Oral 120 / 120 540 / 540 800 / 800 Output: Urine 200 / 200 325 / 325 150 / 150 Other: Meal Breakfast Dinner Percent of Meal Consumed 100% 70% Weight 116 kg Blood Glucose* 151 108 107 Patient Weight 09/16/18 23:59 Weight 116 kg - Labs CBC & BMP: 09/13/18 08:02 09/13/18 08:02 Labs: Abnormal lab results Hgb 10.1 g/dL (12.9-16.9) L 09/13/18 08:02 Hct 30.6 % (37.5-50.1) L 09/13/18 08:02 BUN 24 mg/dL (6-20) H 09/13/18 08:02 Glucose 134 mg/dL (70-105) H 09/13/18 08:02 POC Glucose 108 mg/dL (70-99) H 09/15/18 22:03 Consult Discharge Plan - Plan Referrals: Estefany Wilks, ENVIRONMENTAL SAFETY SPECIALIST [Primary Care Provider] -
[2018-09-16] MEDS: Insulin LISPRO 300 UNITS/3 ML VIAL SQ SCH (08:45)
[2018-09-16] MEDS: Lisinopril 20 MG TABLET PO SCH (08:50)
[2018-09-16] MEDS: *HR* Metformin 500 MG TABLET PO SCH (08:50)
[2018-09-16] MEDS: Magnesium Oxide 400 MG TABLET PO SCH (08:50)
[2018-09-16] MEDS: Aspirin Enteric Coated 81 MG Tablet PO SCH (08:50)
[2018-09-16 11:25] VITALS: BP 121/73
== END 2018-09-16 12:02 | disposition home health service (06) ==
LOC: SAMDAY 07:16 → 3NENU 07:16 → EDUNIT# 12:20 → 3NENU 13:02
PROVIDERS: ADMIT Orthopaedic Surgery; ATTEND Orthopaedic Surgery

== ENCOUNTER 2019-10-29 21:47 | Observation (INO) ==
[2019-10-29] MEDS ORDERED: Naloxone 0.4 MG/ML INJ IVP PRN (23:50)
[2019-10-30] MEDS ORDERED: Dextrose Gel 15 GM/37.5 ML TUBE PO PRN ×2 (00:59)
[2019-10-30] MEDS ORDERED: *HR* Dextrose 50 % in Water (Syg) 50 ML SYRINGE IVP PRN (00:59)
[2019-10-30] MEDS ORDERED: D5% in Water 1,000 ML IVC PRN (00:59)
[2019-10-30] MEDS ORDERED: carvediloL 6.25 MG TABLET PO SCH (08:00)
[2019-10-30] MEDS ORDERED: lisinopriL 20 MG TABLET PO SCH (09:00)
[2019-10-30] MEDS ORDERED: Magnesium Oxide 400 MG TABLET PO SCH (09:00)
[2019-10-30] MEDS ORDERED: *HR* Rivaroxaban 10 MG TABLET PO SCH (09:00)
[2019-10-30] MEDS: Insulin LISPRO 300 UNITS/3 ML VIAL SQ SCH ×2 (09:05→14:13)
[2019-10-30] MEDS ORDERED: Regadenoson 0.4 MG/5 ML SYRINGE IVP ONE (12:05)
[2019-10-30 15:14] VITALS: BP 141/87
[2019-10-30] MEDS ORDERED: *HR* GlipiZIDE XL (24 HR) 2.5 MG TABLET PO SCH (21:00)
== END 2019-10-30 16:35 | disposition home or self-care (01) ==
LOC: CDU → SUATTDRO 23:09 → CDU 10-30 08:50
PROVIDERS: ADMIT Student in an Organized Health Care Education/Training Program; ATTEND Internal Medicine